=== PATIENT | female | born 1950 | race Caucasian/White ===

== ENCOUNTER 2017-02-17 05:55 | Day surgery (SDC) | payer MEDICARE, OTHER ==
--- NOTE | ~2017-02-17 | EGD ---
EGD REPORT [facility] [address] [id number] NAME: SHANITA CHOWDHURY : [birth year] STATUS : REG [facility]#: [id number] AGE: 66 ADM/REG DATE : 02/17/17 MR#: [id number] REPORT SERV DATE: 02/17/17 DICTATED BY: ROSALIE NORWOOD DATE: 02/17/17 REPORT STATUS : Draft TRANSCRIBED BY: [facility] DATE: 02/17/17 Endoscopy Center Patient Name: Shanita Chowdhury Date of : 1950 Attending MD: ROSALIE NORWOOD MD Procedure Date No Time: 02/17/2017 Procedure: Colonoscopy Indications: High risk colon cancer surveillance: Personal history of colonic polyps Referring MD: MANE LAYNE Medicines: as per anesthesia Complications: No immediate complications. Procedure: Pre-Anesthesia Assessment: - ASA Grade Assessment: III - A patient with severe systemic disease. After I obtained informed consent, the scope was passed under direct vision. Throughout the procedure, the patient's blood pressure, pulse, and oxygen saturations were monitored continuously. The Colonoscope was introduced through the anus and advanced to the cecum, identified by appendiceal orifice and ileocecal valve. The colonoscopy was performed without difficulty. The patient tolerated the procedure. The quality of the bowel preparation was adequate to identify polyps. Findings: The perianal and digital rectal examinations were normal. A few small and large-mouthed diverticula were found in the sigmoid colon and in the descending colon. Internal hemorrhoids were found during endoscopy and were mild. Impression: - Diverticulosis in the sigmoid colon and in the descending colon. - Internal hemorrhoids. Recommendation: - Repeat colonoscopy in 5 years for surveillance. Procedure Code(s): --- Professional --- 32978, Colonoscopy, flexible, proximal to splenic flexure; diagnostic, with or without collection of specimen(s) by brushing or washing, with or without colon decompression (separate procedure) Diagnosis Code(s): --- Professional --- K64.8, Other hemorrhoids EGD REPORT [place] [address] [address] [facility] [place] [address] NAME: SHANITA CHOWDHURY : [birth year] STATUS : REG [facility]#: [id number] AGE: 66 ADM/REG DATE : 02/17/17 MR#: [id number] REPORT SERV DATE: 02/17/17 DICTATED BY: ROSALIE NORWOOD. DATE: 02/17/17 REPORT STATUS : Draft TRANSCRIBED BY: [employer] DATE: 02/17/17 K57.30, Diverticulosis of large intestine without perforation or abscess without bleeding Z86.010, Personal history of colonic polyps CPT copyright 2013 [employer]. All rights reserved. The codes documented in this report are preliminary and upon foam rubber molder review may be revised to meet current compliance requirements. ROSALIE NORWOOD MD 02/17/2017 7:47 AM This report has been signed electronically. Number of Addenda: 0 Note Initiated On: 02/17/2017 6:56 AM [facility] [address] [id number]
--- NOTE | ~2017-02-17 | EGD ---
EGD REPORT [facility] [address] [id number] NAME: SHANITA CHOWDHURY : [birth year] STATUS : REG [facility]#: [id number] AGE: 66 ADM/REG DATE : 02/17/17 MR#: [id number] REPORT SERV DATE: 02/17/17 DICTATED BY: ROSALIE NORWOOD DATE: 02/17/17 REPORT STATUS : Draft TRANSCRIBED BY: [facility] DATE: 02/17/17 Endoscopy Center Patient Name: Shanita Chowdhury Date of : 1950 Attending MD: ROSALIE NORWOOD MD Procedure Date No Time: 02/17/2017 Procedure: Upper GI endoscopy Indications: Epigastric abdominal pain, Personal history of peptic ulcer disease Referring MD: MANE LAYNE Medicines: as per anesthesia Complications: No immediate complications. Procedure: Pre-Anesthesia Assessment: - ASA Grade Assessment: III - A patient with severe systemic disease. After obtaining informed consent, the endoscope was passed under direct vision. Throughout the procedure, the patient's blood pressure, pulse, and oxygen saturations were monitored continuously. The GIF [id number] was introduced through the mouth, and advanced to the third part of duodenum. The upper GI endoscopy was accomplished without difficulty. The patient tolerated the procedure. Findings: The examined esophagus was normal. Two cratered gastric ulcers were found in the gastric antrum. The largest lesion was 5 mm in largest dimension. Biopsies were taken with a cold forceps for histology. The cardia and gastric fundus were normal on retroflexion. The examined duodenum was normal. Impression: - Normal esophagus. - Gastric ulcers. Biopsied. - Normal examined duodenum. Recommendation: - Await pathology results. - Use Prilosec (omeprazole) 40 mg PO BID. Procedure Code(s): --- Professional --- 14586, Esophagogastroduodenoscopy, flexible, transoral; with biopsy, single or multiple Diagnosis Code(s): --- Professional --- K25.9, Gastric ulcer, unspecified as acute or chronic, EGD REPORT [address] [facility]. [address] NAME: SHANITA CHOWDHURY : [birth year] STATUS : REG [facility] PAT#: [id number] AGE: 66 ADM/REG DATE : 02/17/17 MR#: [id number] REPORT SERV DATE: 02/17/17 DICTATED BY: RSOALIE NORWOOD. DATE: 02/17/17 REPORT STATUS : Draft TRANSCRIBED BY: [employer] DATE: 02/17/17 without hemorrhage or perforation R10.13, Epigastric pain Z87.11, Personal history of peptic ulcer disease CPT copyright 2013 [employer]. All rights reserved. The codes documented in this report are preliminary and upon bell maker review may be revised to meet current compliance requirements. ROSALIE NORWOOD MD 02/17/2017 7:28 AM This report has been signed electronically. Number of Addenda: 0 Note Initiated On: 02/17/2017 6:56 AM Scope Withdrawal Time 0 hours 0 minutes [address] [place], [place] [address] [address]
[~2017-02-17 05:55] MED LIST: ACET500CAP PO; ADVIL PO; ALTA5 PO; C5; COZ25 PO; COZ50 PO; D 5000 PO; ELIQUIS 5 MG TAB5 MG PO; GLUCPH PO; HYDROCHLOROT25 MG PO; JANTOVEN1 MG PO; JANTOVEN3 MG; JANTOVEN3 MG PO; JANTOVEN4 MG PO; LOFIBRA134 MG PO; NORCO1 TA1 PO; PCET PO; RYTHMOL225 MG PO; SPIRO25 PO; TAGAMET 200 MG200 MG PO; VITAMIN B-12 PO; VITAMIN D1000 UNI1 PO; VITE200U PO; ZANTAC150 MG PO
[2017-02-17 06:25] LABS: INTERNATIONAL NORMAL RATI 1.2 UNITS (-)
[2017-02-17 06:26] LABS: PROTIME (NOT ORD) 15.3 SEC (12.0-14.5)
== END 2017-02-17 23:59 | disposition home or self-care (01) ==
LOC: DMU 05:55
PROVIDERS: Anesthesiology; Internal Medicine Gastroenterology
PROC: 0DJD8ZZ Inspection of Lower Intestinal Tract, Via Natural or Artificial Opening Endoscopic (ICD-10-PCS; principal; 2017-02-17 07:30)
PROC: 0DB68ZX Excision of Stomach, Via Natural or Artificial Opening Endoscopic, Diagnostic (ICD-10-PCS; 2017-02-17 07:30)
DX: Z12.11 Encounter for screening for malignant neoplasm of colon (principal); K57.30 Diverticulosis of large intestine without perforation or abscess without bleeding; K64.8 Other hemorrhoids; K25.9 Gastric ulcer, unspecified as acute or chronic, without hemorrhage or perforation; I48.91 Unspecified atrial fibrillation; I25.10 Atherosclerotic heart disease of native coronary artery without angina pectoris; I50.9 Heart failure, unspecified; M19.90 Unspecified osteoarthritis, unspecified site; K58.9 Irritable bowel syndrome, unspecified; I11.0 Hypertensive heart disease with heart failure; E11.9 Type 2 diabetes mellitus without complications; Z95.0 Presence of cardiac pacemaker; Z87.11 Personal history of peptic ulcer disease; Z86.010 Personal history of colon polyps; Z86.73 Personal history of transient ischemic attack (TIA), and cerebral infarction without residual deficits; Z87.891 Personal history of nicotine dependence
CPT/HCPCS: 43239; G0105; 82962; 85610; 88305; 88342